=== PATIENT | female | born 1990 | race Caucasian/White ===

== ENCOUNTER 2018-12-27 11:51 | Emergency (ER) | payer MEDICAID ==
[~2018-12-27] VITALS: Ht 157.5 cm; Wt 54.4 kg
--- NOTE | 2018-12-27 12:06 | NUR ---
KYLEE ELIZONDO AT BEDSIDE FOR MSE.
--- NOTE | 2018-12-27 12:16 | NUR ---
[employer] AT BEDSIDE.
[2018-12-27 12:18] LABS: *URINE HCG, QUAL NEGATIVE (NEGATIVE)
[2018-12-27] MEDS ORDERED: KETOROLAC TROMETHAMINE 60 MG INJ IM ONE ×2 (12:24→12:30)
--- NOTE | 2018-12-27 12:54 | NUR ---
Patient discharged to home in stable conditon. Written and verbal after care instructions given. Patient verbalizes understanding of instructions. ALL BELONGINGS W/ PT. PT SELF-AMBULATED W/O DIFFICULTY.
[2018-12-27 12:55] VITALS: BP 122/66
== END 2018-12-27 12:57 | disposition home or self-care (01) ==
LOC: ER 11:52
DX: S63.501A Unspecified sprain of right wrist, initial encounter (principal); W18.39XA Other fall on same level, initial encounter; Y93.89 Activity, other specified; Y92.89 Other specified places as the place of occurrence of the external cause; Y99.8 Other external cause status
CPT/HCPCS: 29125; 73130; 84703; 96372; 99284; J1885; A4663